=== PATIENT | male | born 1970 | race Two or more races ===

== ENCOUNTER 2020-01-20 16:28 | Emergency (ER) | payer MEDICARE, MEDICAID ==
[~2020-01-20] VITALS: Ht 175.3 cm; Wt 72.6 kg
[~2020-01-20 16:28] MED LIST: BRIMONIDINE TART5 ML RIGHT EYE; CORTISPORIN15 GM TOP; COSOPT1 DROP RIGHT EYE; IBUPROFEN600 MG PO; LUMIGAN1 DROP RIGHT EYE
[2020-01-20] MEDS ORDERED: IBUPROFEN600 M1 ORAL (16:52)
[2020-01-20] MEDS ORDERED: Ketorolac 30mg Inj ONE (16:53)
--- NOTE | 2020-01-20 16:59 | Emergency Room Report ---
History of Present Illness General Chief Complaint: Lower Extremity Injury Source: Patient Present Illness HPI 49-year-old male here with right knee pain. Patient says that 6 days ago he suffered a mechanical fall in his home when he tripped on a loose tile in his bathroom. He landed on his right knee. Never hit his head or neck or had loss of consciousness. Has been ambulating throughout his home much difficulty but says that his knee still is in pain. Denies fevers, chills, focal numbness or weakness, chest pain, palpitation, shortness of breath, lightheadedness, back pain, abdominal pain, nausea, vomiting, diarrhea, dysuria. He has not taken any medications for the pain. His pain is 2 out of 10 in intensity right now despite not taking any pain medications. He did follow-up with his primary care provider who said he needed to come to the emergency department for x-rays. Allergies: Coded Allergies: No Known Allergies (Unverified , 03/05/12) COVID-19 Screening Contact w/high risk pt: No Experienced COVID-19 symptoms?: No COVID-19 Testing performed COLORIST PHOTOGRAPHY: No Review of Systems All Other Systems: negative except mentioned in HPI Physical Exam Vital Signs Date Time Temp Pulse Resp B/P (MAP) Pulse Ox O2 Delivery O2 Flow Rate FiO2 01/20/20 16:33 97.9 78 18 140/89 (106) 97 Room Air Sp02 EP Interpretation: reviewed, normal General Appearance: no apparent distress, alert, non-toxic Head: normocephalic, atraumatic Eyes: bilateral eye normal inspection, bilateral eye PERRL ENT: hearing grossly normal, normal pharynx, no angioedema, normal voice Neck: full range of motion, supple/symm/no masses Respiratory: chest non-tender, lungs clear, normal breath sounds, speaking full sentences Cardiovascular #1: regular rate, rhythm, no edema Cardiovascular #2: 2+ carotid (R), 2+ carotid (L), 2+ radial (R), 2+ radial (L), 2+ dorsalis pedis (R), 2+ dorsalis pedis (L) Gastrointestinal: normal bowel sounds, non tender, soft, non-distended, no guarding, no rebound Rectal: deferred Genitourinary: normal inspection, no CVA tenderness Musculoskeletal: back normal, normal range of motion, gait/station normal, o ther - Mild distal anterior knee effusion surrounding the patella. No skin breakdown. Normal strength and range of motion. 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 Very mild effusion just distal to the patella splint note: Jair wrap splint was applied to the patients right knee by tech and adjusted by me. The patient was neurovascularly intact as checked by me after application. 49-year-old male here with right knee pain. Patient was neurovascularly intact and had no gross deformities on physical examination aside from very mild edema just distal to the right knee. There is no skin breakdown and no evidence of infection such as septic bursitis, septic arthritis. No joint instability. X- ray of the right knee was largely unremarkable. Jair wrap was applied by the tech and was examined by myself and the patient was neurovascular intact before and after the Jair wrap was applied. Patient was given Toradol in the emergency department. Patient was ambulating throughout the emergency department without much difficulty. Patient was given a prescription for ibuprofen and will follow up with his primary care physician. Discharged in stable condition. Last Vital Signs Date Time Temp Pulse Resp B/P (MAP) Pulse Ox O2 Delivery O2 Flow Rate FiO2 01/20/20 16:33 97.9 78 18 140/89 (106) 97 Room Air Disposition: HOME, SELF-CARE Scripts Ibuprofen* (MOTRIN*) 600 Mg Tablet 600 MG ORAL Q6H PRN for FOR PAIN, #20 TAB 0 Refills Prov: Ky Stroud M.D. 01/20/20 Referrals: [facility] Patient Instructions: Knee Pain Additional Instructions: Please follow-up with your primary care doctor in the next 1 to 3 days to discuss this emergency department visit and for reevaluation. If you have any new or worsening symptoms please return to the emergency department for reevaluation. Ky Stroud M.D. Jan 20, 2020 16:59
[2020-01-20] MEDS ORDERED: Ketorolac 60mg Inj IM ONE (17:00)
--- NOTE | 2020-01-20 17:02 | Diagnostic Imaging Report ---
Indications: Right knee pain Technique: Three views of the right knee Comparison: None Findings: No acute fractures. No dislocations. Joint spaces are preserved. No radiopaque foreign body. Normal mineralization. Impression: No acute process
[2020-01-20 17:07] VITALS: BP 130/81
== END 2020-01-20 17:07 | disposition home or self-care (01) ==
LOC: EMR 16:50
DX: S89.91XA Unspecified injury of right lower leg, initial encounter (principal); W01.0XXA Fall on same level from slipping, tripping and stumbling without subsequent striking against object, initial encounter; Y92.002 Bathroom of unspecified non-institutional (private) residence as the place of occurrence of the external cause
CPT/HCPCS: 96372; 99283